=== PATIENT | male | born 1960 | race African-American/Black ===

== ENCOUNTER 2021-08-11 02:08 | Inpatient (IN) | payer MEDICAID, OTHER ==
[~2021-08-11] VITALS: Ht 182.9 cm; Wt 98.6 kg
[2021-08-11] MEDS ORDERED: FAMOTIDINE 20MG/2ML VIAL IV STA ×2 (03:17→06:39)
[2021-08-11] MEDS ORDERED: ONDANSETRON HCL 4MG/2ML INJ IV STA (03:17)
[2021-08-11] MEDS ORDERED: SODIUM CHLORIDE 0.9% 1,000 ML IV ONE (03:30)
[2021-08-11 04:24] LABS: BASOPHILS % 0.5 % (0.0-2.0); HEMOGLOBIN. 12.8 g/dL (14.0-18.0); MEAN CORPUSCULAR HEMOGLOBIN 30.9 pg (28.0-32.0); MEAN PLATELET VOLUME 8.1 fl (7.4-10.4); MONOCYTES % 10.5 % (2.0-8.0); PLATELET 197 x1000/uL (130-400); RED BLOOD CELL COUNT 4.15 mill/uL (4.7-6.1); RED CELL DISTRIBUTION WIDTH 13.8 % (11.6-14.6)
[2021-08-11 04:34] LABS: INR 1.1; PROTHROMBIN TIME 11.7 sec (9.6-11.0)
[2021-08-11 04:52] LABS: CHLORIDE 107 mEq/L (98-107)
[2021-08-11] MEDS ORDERED: IPRATROPIUM/ALBUTEROL 0.5-3(2.5)MG/3ML NEB NEB PRN (10:00)
[2021-08-11] MEDS ORDERED: ONDANSETRON HCL 4MG/2ML INJ IV PRN (10:00)
[2021-08-11] MEDS ORDERED: MAGNESIUM/ALUMINUM HYDROXIDE/SIMETHICONE 30ML UDC PO PRN (10:00)
[2021-08-11] MEDS ORDERED: ZOLPIDEM TARTRATE 5MG TABLET PO PRN (10:00)
[2021-08-11] MEDS ORDERED: ACETAMINOPHEN 325MG TABLET PO PRN (10:00)
[2021-08-11] MEDS ORDERED: DOCUSATE SODIUM 100MG CAPSULE PO PRN (10:00)
[2021-08-11] MEDS ORDERED: CLONIDINE 0.1MG TABLET PO PRN (10:00)
[2021-08-11] MEDS ORDERED: GUAIFENESIN 200MG/10ML SUGAR FREE UDC PO PRN (10:00)
[2021-08-11] MEDS: AMLODIPINE 10MG TABLET PO SCH (10:27)
[2021-08-11] MEDS: DEXT 5%/0.45% NACL 1000ML 1,000 ML IV SCH (10:28)
[2021-08-11] MEDS: HYDRALAZINE HCL 50MG TABLET PO SCH ×2 (14:24→21:10)
[2021-08-11 16:00] VITALS: BP 121/69
[2021-08-11] MEDS ORDERED: POLY510P31 PO (16:01)
[2021-08-11] MEDS ORDERED: TERB30CR8 TP (16:01)
[2021-08-11] MEDS ORDERED: GABA-532 PO (16:01)
[2021-08-11] MEDS ORDERED: [UNRECOGNIZED DRUG - OTHER] SUBCUT (16:01)
[2021-08-11] MEDS ORDERED: HYDR-4001 PO (16:01)
[2021-08-11] MEDS ORDERED: LOSA25TA26 PO (16:01)
[2021-08-11] MEDS ORDERED: INSU100I24 SUBCUT (16:01)
[2021-08-11] MEDS ORDERED: DULA0.75 SUBCUT (16:01)
[2021-08-11] MEDS ORDERED: ATOR10TA69 PO (16:01)
[2021-08-11 16:02] VITALS: BP 121/69
[2021-08-11] MEDS ORDERED: DEXTROSE 50% WATER 50ML SYRINGE IV PRN (17:45)
[2021-08-11 19:10] LABS: FOLIC ACID (FOLATE) SERUM 12.6 ng/mL (>5.38)
[2021-08-11 20:00] VITALS: BP 155/78
[2021-08-11 20:59] LABS: ETHANOL BLOOD < 10 mg/dL
[2021-08-11] MEDS: INSULIN LISPRO 100 UNITS/ML SUBCUT SCH (21:00)
[2021-08-11 21:01] LABS: TOTAL IRON BINDING CAPACITY 305 ug/dL (250-450)
[2021-08-11] MEDS: ACETAMINOPHEN 325MG TABLET PO PRN (21:10)
[2021-08-11] MEDS: METOPROLOL TARTRATE 25MG TABLET PO SCH (21:10)
[2021-08-11] MEDS: BLOOD SUGAR DIAGNOSTIC STRIP TEST SCH (21:10)
[2021-08-11 23:30] LABS: CLARITY URINE CLEAR (CLEAR); COLOR URINE YELLOW (YELLOW); KETONES URINE NEGATIVE (NEGATIVE); LEUKOCYTE ESTERASE URINE NEGATIVE (NEGATIVE); NITRITE URINE NEGATIVE (NEGATIVE); OCCULT BLOOD URINE NEGATIVE (NEGATIVE); PH URINE 5.5 (4.5-8.0); PROTEIN URINE 3+ (NEGATIVE); SPECIFIC GRAVITY URINE 1.012 (1.005-1.030)
[2021-08-11 23:42] LABS: *AMPHETAMINES SCREEN URINE NEGATIVE (NEGATIVE); *BARBITURATES SCREEN URINE NEGATIVE (NEGATIVE); *BENZODIAZEPINES SCREEN URINE NEGATIVE (NEGATIVE); *COCAINE SCREEN URINE PRESUMTIVE POSITIVE (NEGATIVE); METHADONE URINE SCREEN NEGATIVE (NEGATIVE); OPIATES URINE SCREEN NEGATIVE (NEGATIVE)
[2021-08-11 23:43] LABS: CANNABINOID URINE SCREEN NEGATIVE (NEGATIVE); PHENCYCLIDINE URINE SCREEN NEGATIVE (NEGATIVE)
[2021-08-12] VITALS: BP 141/66
[2021-08-12] MEDS: DEXT 5%/0.45% NACL 1000ML 1,000 ML IV SCH ×2 (02:26→12:23)
[2021-08-12 04:00] VITALS: BP 136/71
[2021-08-12] MEDS: ACETAMINOPHEN 325MG TABLET PO PRN (05:35)
[2021-08-12] MEDS: HYDRALAZINE HCL 50MG TABLET PO SCH ×3 (05:35→21:31)
[2021-08-12] MEDS: INSULIN LISPRO 100 UNITS/ML SUBCUT SCH ×4 (07:10→21:00)
[2021-08-12 07:12] LABS: BASOPHILS % 0.5 % (0.0-2.0); EOSINOPHILS % 2.4 % (0.0-5.0); HEMATOCRIT. 37.1 % (42.0-52.0); HEMOGLOBIN. 12.6 g/dL (14.0-18.0); LYMPHOCYTES % 14.7 % (20.0-50.0); MEAN CORPUSCULAR HEMOGLOBIN 31.2 pg (28.0-32.0); MEAN PLATELET VOLUME 8.9 fl (7.4-10.4); MONOCYTES % 10.2 % (2.0-8.0); NEUTROPHILS % 72.2 % (40.0-76.0); PLATELET 168 x1000/uL (130-400); RED BLOOD CELL COUNT 4.03 mill/uL (4.7-6.1); RED CELL DISTRIBUTION WIDTH 14.1 % (11.6-14.6)
[2021-08-12] MEDS: BLOOD SUGAR DIAGNOSTIC STRIP TEST SCH ×4 (07:39→21:31)
[2021-08-12 07:41] LABS: CHLORIDE 110 mEq/L (98-107)
[2021-08-12 07:52] LABS: PHOSPHORUS 3.8 mg/dL (2.5-4.9)
[2021-08-12 08:00] VITALS: BP 120/68
[2021-08-12 08:07] LABS: CREATINE KINASE 1152 IU/L (39-308)
[2021-08-12] MEDS ORDERED: PANTOPRAZOLE SODIUM 40 MG/VIAL IV SCH (09:00)
[2021-08-12] MEDS: AMLODIPINE 10MG TABLET PO SCH (09:03)
[2021-08-12] MEDS: METOPROLOL TARTRATE 25MG TABLET PO SCH ×2 (09:04→21:31)
[2021-08-12 12:00] VITALS: BP 111/63
[2021-08-12 16:00] VITALS: BP 122/70
[2021-08-12 20:00] VITALS: BP 121/73
[2021-08-13] VITALS: BP 133/69
[2021-08-13] MEDS: DEXT 5%/0.45% NACL 1000ML 1,000 ML IV SCH (02:15)
[2021-08-13 04:00] VITALS: BP 141/71
[2021-08-13] MEDS: HYDRALAZINE HCL 50MG TABLET PO SCH (06:14)
[2021-08-13] MEDS: INSULIN LISPRO 100 UNITS/ML SUBCUT SCH (06:14)
[2021-08-13] MEDS: BLOOD SUGAR DIAGNOSTIC STRIP TEST SCH (06:17)
[2021-08-13 08:00] VITALS: BP 111/51
== END 2021-08-13 09:20 | disposition left against medical advice (07) | DRG 253 ==
LOC: ER 02:19 → MICUSO 05:10 → UNDOADMIN 07:58 → 7EST 16:43
PROVIDERS: ADMIT Internal Medicine; ATTEND Internal Medicine
DX: K92.0 Hematemesis (principal); N17.0 Acute kidney failure with tubular necrosis; E44.1 Mild protein-calorie malnutrition; E11.22 Type 2 diabetes mellitus with diabetic chronic kidney disease; E11.51 Type 2 diabetes mellitus with diabetic peripheral angiopathy without gangrene; D64.9 Anemia, unspecified; E66.9 Obesity, unspecified; I12.9 Hypertensive chronic kidney disease with stage 1 through stage 4 chronic kidney disease, or unspecified chronic kidney disease; I16.1 Hypertensive emergency; F10.10 Alcohol abuse, uncomplicated; F14.10 Cocaine abuse, uncomplicated; I25.10 Atherosclerotic heart disease of native coronary artery without angina pectoris; K76.0 Fatty (change of) liver, not elsewhere classified; K80.20 Calculus of gallbladder without cholecystitis without obstruction; N40.0 Benign prostatic hyperplasia without lower urinary tract symptoms; Z53.21 Procedure and treatment not carried out due to patient leaving prior to being seen by health care provider; K82.8 Other specified diseases of gallbladder; N18.30 Chronic kidney disease, stage 3 unspecified; Z79.4 Long term (current) use of insulin; Z82.49 Family history of ischemic heart disease and other diseases of the circulatory system; Z83.3 Family history of diabetes mellitus; Z68.29 Body mass index [BMI] 29.0-29.9, adult; Z88.0 Allergy status to penicillin
CPT/HCPCS: 36415; 71045; 73610; 74176; 76770; 80053; 80305; 80320; 81003; 82550; 82607; 82728; 82746; 82962; 83036; 83540; 83550; 83605; 83735; 84100; 85025; 93005; 93970; 99291; C9113; J1815; J2405; J3490; J7030; G0480

== ENCOUNTER 2022-10-29 14:59 | Inpatient (IN) | payer MEDICAID, OTHER ==
[~2022-10-29] VITALS: Ht 182.9 cm; Wt 112.5 kg
[~2022-10-29 14:59] MED LIST: ATOR10TA69 PO; DULA0.75 SUBCUT; GABA-532 PO; HYDR-4001 PO; INSU100I24 SUBCUT; LOSA25TA26 PO; POLY510P31 PO; TERB30CR8 TP; [UNRECOGNIZED DRUG - OTHER] SUBCUT
[2022-10-29] MEDS ORDERED: LEVOFLOXACIN 500MG PREMIX 100 ML IV ONE (16:15)
[2022-10-29] MEDS ORDERED: VANCOMYCIN 1G PREMIX 200 ML IV SCH (16:15)
[2022-10-29 16:59] LABS: HEMATOCRIT. 25.1 % (42.0-52.0); HEMOGLOBIN. 8.4 g/dL (14.0-18.0); MEAN CORPUSCULAR HEMOGLOBIN 29.5 pg (28.0-32.0); MEAN CORPUSCULAR VOLUME 87.8 fL (80.0-94.0); MEAN PLATELET VOLUME 7.6 fl (7.4-10.4); PLATELET 137 x1000/uL (130-400); RED BLOOD CELL COUNT 2.85 mill/uL (4.7-6.1); RED CELL DISTRIBUTION WIDTH 13.8 % (11.6-14.6)
[2022-10-29 17:05] LABS: INR 1.2; PROTHROMBIN TIME 13.2 sec (9.6-11.0)
[2022-10-29 17:06] LABS: CHLORIDE 100 mEq/L (98-107)
[2022-10-29] MEDS ORDERED: LEVOFLOXACIN 500MG PREMIX 100 ML IV NR (18:15)
[2022-10-29 18:16] LABS: PLATELET ESTIMATE NORMAL
[2022-10-30] VITALS (10 sets, daily range): BP systolic 109–148; BP diastolic 62–84
[2022-10-30] MEDS ORDERED: ONDANSETRON HCL 4MG/2ML INJ IV PRN (08:45)
[2022-10-30] MEDS ORDERED: DEXTROSE 50% WATER 50ML SYRINGE IV PRN (08:45)
[2022-10-30] MEDS ORDERED: LEVOFLOXACIN 500MG PREMIX 100 ML IV SCH (09:00)
[2022-10-30] MEDS ORDERED: NIFEDIPINE XL 60MG TAB PO SCH (10:00)
[2022-10-30] MEDS: NIFEDIPINE XL 60MG TAB PO SCH (10:14)
[2022-10-30] MEDS: BLOOD SUGAR DIAGNOSTIC STRIP TEST SCH ×3 (11:30→21:29)
[2022-10-30] MEDS: INSULIN LISPRO 100 UNITS/ML SUBCUT SCH ×3 (12:00→21:00)
[2022-10-30] MEDS ORDERED: ALBUTEROL 6.7GM HFA INHALER ORI PRN (18:30)
[2022-10-30] MEDS: DEXAMETHASONE 10 MG/ML VIAL IV SCH (18:49)
[2022-10-30 19:09] LABS: BG BASE EXCESS -1.8 mmol/L (-2.0-2.0); BG CARBOXYHEMOGLOBIN 0.3 % (0.5-1.5); BG DEOXYHEMOGLOBIN 3.3 % (0.0-5.0); BG FRACTION INSPIRED OXYGEN 60; BG HCO3 ACT 22.3 mmol/L (22.0-26.0); BG METHEMOGLOBIN 0.2 % (0.0-1.5); BG OXYGEN SATURATION 96.7 % (92.0-98.5); BG OXYHEMOGLOBIN 96.2 % (94.0-97.0); BG PCO2 35.4 mmHg (35.0-45.0); BG PH 7.418 (7.350-7.450); BG PO2 95.7 mmHg (75.0-100.0); BG SAMPLE SITE RIGHT RADIAL; BG TOTAL HEMOGLOBIN 9.2 g/dL (12.0-18.0); BG VENT MODE MASK - SIMPLE
[2022-10-30] MEDS: CARVEDILOL 6.25 MG TABLET PO SCH (21:00)
[2022-10-30] MEDS: ACETAMINOPHEN 325MG TABLET PO PRN (22:58)
[2022-10-30] MEDS: EPOETIN ALFA-EPBX 4,000 UNIT/ML VIAL SUBCUT SCH (23:26)
[2022-10-31] VITALS: BP 120/69
[2022-10-31 04:00] VITALS: BP 111/69
[2022-10-31] MEDS: BLOOD SUGAR DIAGNOSTIC STRIP TEST SCH ×4 (06:00→21:03)
[2022-10-31] MEDS: INSULIN LISPRO 100 UNITS/ML SUBCUT SCH ×4 (06:20→21:01)
[2022-10-31 07:49] LABS: BASOPHILS % 0.3 % (0.0-2.0); EOSINOPHILS % 0.1 % (0.0-5.0); HEMATOCRIT. 26.8 % (42.0-52.0); HEMOGLOBIN. 8.9 g/dL (14.0-18.0); LYMPHOCYTES % 7.5 % (20.0-50.0); MEAN CORPUSCULAR HEMOGLOBIN 29.3 pg (28.0-32.0); MEAN PLATELET VOLUME 8.4 fl (7.4-10.4); MONOCYTES % 9.8 % (2.0-8.0); NEUTROPHILS % 82.3 % (40.0-76.0); PLATELET 130 x1000/uL (130-400); RED BLOOD CELL COUNT 3.04 mill/uL (4.7-6.1); RED CELL DISTRIBUTION WIDTH 14.2 % (11.6-14.6)
[2022-10-31 08:00] VITALS: BP 189/81
[2022-10-31 08:19] LABS: PHOSPHORUS 5.6 mg/dL (2.5-4.9)
[2022-10-31 09:01] LABS: BG BASE EXCESS -2.3 mmol/L (-2.0-2.0); BG CARBOXYHEMOGLOBIN 0.3 % (0.5-1.5); BG DEOXYHEMOGLOBIN 3.9 % (0.0-5.0); BG FRACTION INSPIRED OXYGEN 48; BG HCO3 ACT 22.1 mmol/L (22.0-26.0); BG METHEMOGLOBIN 0.1 % (0.0-1.5); BG OXYGEN SATURATION 96.1 % (92.0-98.5); BG OXYHEMOGLOBIN 95.7 % (94.0-97.0); BG PCO2 36.2 mmHg (35.0-45.0); BG PH 7.403 (7.350-7.450); BG PO2 86.6 mmHg (75.0-100.0); BG SAMPLE SITE RIGHT BRACHIAL; BG TOTAL HEMOGLOBIN 9.6 g/dL (12.0-18.0); BG VENT MODE NASAL CANNULA
[2022-10-31] MEDS: DEXAMETHASONE 10 MG/ML VIAL IV SCH (09:27)
[2022-10-31] MEDS: NIFEDIPINE XL 60MG TAB PO SCH (09:27)
[2022-10-31] MEDS: CARVEDILOL 6.25 MG TABLET PO SCH ×2 (09:27→21:02)
[2022-10-31 11:41] LABS: HEPATITIS B SURFACE ANTIGEN NEGATIVE
[2022-10-31 12:00] VITALS: BP 129/75
[2022-10-31] MEDS: SEVELAMER CARBONATE 800 MG TABLET PO SCH ×2 (12:38→17:35)
[2022-10-31 16:00] VITALS: BP 120/71
[2022-10-31 20:00] VITALS: BP 119/70
[2022-11-01] VITALS (14 sets, daily range): BP systolic 109–160; BP diastolic 67–99
[2022-11-01] MEDS: BLOOD SUGAR DIAGNOSTIC STRIP TEST SCH ×4 (06:25→20:38)
[2022-11-01] MEDS: INSULIN LISPRO 100 UNITS/ML SUBCUT SCH ×4 (06:42→20:45)
[2022-11-01] MEDS: SEVELAMER CARBONATE 800 MG TABLET PO SCH ×3 (06:43→18:17)
[2022-11-01 07:55] LABS: BASOPHILS % 0.2 % (0.0-2.0); HEMATOCRIT. 24.1 % (42.0-52.0); LYMPHOCYTES % 7.8 % (20.0-50.0); MEAN CORPUSCULAR VOLUME 87.4 fL (80.0-94.0); MEAN PLATELET VOLUME 8.5 fl (7.4-10.4); MONOCYTES % 14.2 % (2.0-8.0); NEUTROPHILS % 77.8 % (40.0-76.0); PLATELET 135 x1000/uL (130-400); RED BLOOD CELL COUNT 2.76 mill/uL (4.7-6.1); RED CELL DISTRIBUTION WIDTH 13.6 % (11.6-14.6)
[2022-11-01] MEDS: DEXAMETHASONE 10 MG/ML VIAL IV SCH (08:26)
[2022-11-01] MEDS: CARVEDILOL 6.25 MG TABLET PO SCH ×2 (08:27→20:47)
[2022-11-01] MEDS: NIFEDIPINE XL 60MG TAB PO SCH (08:27)
[2022-11-01 08:38] LABS: PHOSPHORUS 5.5 mg/dL (2.5-4.9)
[2022-11-01] MEDS: ACETAMINOPHEN 325MG TABLET PO PRN ×2 (09:05→20:47)
[2022-11-01] MEDS ORDERED: LEVOFLOXACIN 250MG PREMIX 50 ML IV SCH (11:00)
[2022-11-01] MEDS: EPOETIN ALFA-EPBX 4,000 UNIT/ML VIAL SUBCUT SCH (20:45)
[2022-11-02] VITALS: BP_SYST 162; BP_SYST 170; BP_DIAS 92; BP_DIAS 94
[2022-11-02 04:00] VITALS: BP 170/92
[2022-11-02] MEDS: BLOOD SUGAR DIAGNOSTIC STRIP TEST SCH ×4 (06:29→20:42)
[2022-11-02] MEDS: INSULIN LISPRO 100 UNITS/ML SUBCUT SCH ×4 (06:29→20:44)
[2022-11-02] MEDS: SEVELAMER CARBONATE 800 MG TABLET PO SCH ×3 (06:32→17:48)
[2022-11-02 08:00] VITALS: BP 167/92
[2022-11-02] MEDS: CARVEDILOL 6.25 MG TABLET PO SCH ×2 (08:53→20:43)
[2022-11-02] MEDS: NIFEDIPINE XL 60MG TAB PO SCH ×2 (08:53→18:04)
[2022-11-02] MEDS: DEXAMETHASONE 10 MG/ML VIAL IV SCH (08:53)
[2022-11-02 08:57] LABS: BASOPHILS % 0.3 % (0.0-2.0); HEMATOCRIT. 27.6 % (42.0-52.0); HEMOGLOBIN. 9.3 g/dL (14.0-18.0); LYMPHOCYTES % 8.2 % (20.0-50.0); MEAN CORPUSCULAR HEMOGLOBIN 29.4 pg (28.0-32.0); MEAN CORPUSCULAR VOLUME 87.1 fL (80.0-94.0); MEAN PLATELET VOLUME 8.4 fl (7.4-10.4); MONOCYTES % 12.4 % (2.0-8.0); NEUTROPHILS % 79.1 % (40.0-76.0); PLATELET 177 x1000/uL (130-400); RED BLOOD CELL COUNT 3.17 mill/uL (4.7-6.1)
[2022-11-02 09:30] LABS: CHLORIDE 101 mEq/L (98-107)
[2022-11-02 09:40] LABS: PHOSPHORUS 3.6 mg/dL (2.5-4.9)
[2022-11-02 09:47] LABS: BG BASE EXCESS -0.3 mmol/L (-2.0-2.0); BG CARBOXYHEMOGLOBIN 0.3 % (0.5-1.5); BG DEOXYHEMOGLOBIN 1.5 % (0.0-5.0); BG FRACTION INSPIRED OXYGEN 60; BG HCO3 ACT 23.1 mmol/L (22.0-26.0); BG METHEMOGLOBIN 0.3 % (0.0-1.5); BG OXYGEN SATURATION 98.5 % (92.0-98.5); BG OXYHEMOGLOBIN 97.9 % (94.0-97.0); BG PCO2 33.1 mmHg (35.0-45.0); BG PH 7.461 (7.350-7.450); BG PO2 156.9 mmHg (75.0-100.0); BG SAMPLE SITE LEFT BRACHIAL; BG TOTAL HEMOGLOBIN 10.5 g/dL (12.0-18.0); BG VENT MODE MASK - SIMPLE
[2022-11-02 11:30] VITALS: BP 172/89
[2022-11-02] MEDS ORDERED: CLONIDINE 0.1MG TABLET PO PRN (11:45)
[2022-11-02] MEDS ORDERED: NALOXONE HCL 0.4MG/ML VIAL IV PRN (15:45)
[2022-11-02 16:00] VITALS: BP 138/74
[2022-11-02] MEDS: HYDROCODONE/ACETAMINOPHEN 5/325MG TABLET PO PRN ×2 (16:04→20:17)
[2022-11-02 20:00] VITALS: BP 125/72
[2022-11-02] MEDS: GABAPENTIN 300MG CAPSULE PO SCH (20:13)
[2022-11-03] VITALS (7 sets, daily range): BP systolic 103–151; BP diastolic 50–82
[2022-11-03] MEDS: NIFEDIPINE XL 60MG TAB PO SCH ×2 (06:00→20:21)
[2022-11-03] MEDS: BLOOD SUGAR DIAGNOSTIC STRIP TEST SCH ×4 (06:10→20:24)
[2022-11-03] MEDS: SEVELAMER CARBONATE 800 MG TABLET PO SCH ×3 (06:17→17:56)
[2022-11-03] MEDS: INSULIN LISPRO 100 UNITS/ML SUBCUT SCH ×4 (06:19→20:24)
[2022-11-03 07:08] LABS: HEMATOCRIT. 26.3 % (42.0-52.0); HEMOGLOBIN. 8.9 g/dL (14.0-18.0); MEAN CORPUSCULAR HEMOGLOBIN 29.2 pg (28.0-32.0); MEAN CORPUSCULAR VOLUME 86.4 fL (80.0-94.0); MEAN PLATELET VOLUME 8.5 fl (7.4-10.4); PLATELET 135 x1000/uL (130-400); RED BLOOD CELL COUNT 3.04 mill/uL (4.7-6.1)
[2022-11-03 07:21] LABS: PHOSPHORUS 3.8 mg/dL (2.5-4.9)
[2022-11-03] MEDS: CARVEDILOL 6.25 MG TABLET PO SCH ×2 (09:00→20:21)
[2022-11-03] MEDS: DEXAMETHASONE 10 MG/ML VIAL IV SCH (09:32)
[2022-11-03] MEDS: GABAPENTIN 300MG CAPSULE PO SCH ×2 (09:32→17:56)
[2022-11-03] MEDS ORDERED: LEVOFLOXACIN 250MG TABLET PO SCH (11:00)
[2022-11-03 14:41] LABS: PLATELET ESTIMATE NORMAL
[2022-11-03] MEDS: EPOETIN ALFA-EPBX 4,000 UNIT/ML VIAL SUBCUT SCH (20:46)
[2022-11-04] VITALS (13 sets, daily range): BP systolic 122–158; BP diastolic 67–92
[2022-11-04] MEDS: HYDROCODONE/ACETAMINOPHEN 5/325MG TABLET PO PRN (03:54)
[2022-11-04] MEDS: INSULIN LISPRO 100 UNITS/ML SUBCUT SCH ×4 (05:40→21:21)
[2022-11-04] MEDS: BLOOD SUGAR DIAGNOSTIC STRIP TEST SCH ×4 (05:40→21:18)
[2022-11-04] MEDS: SEVELAMER CARBONATE 800 MG TABLET PO SCH ×3 (06:29→17:12)
[2022-11-04 07:50] LABS: PHOSPHORUS 3.7 mg/dL (2.5-4.9)
[2022-11-04] MEDS: CARVEDILOL 6.25 MG TABLET PO SCH ×2 (09:00→21:18)
[2022-11-04] MEDS: GABAPENTIN 300MG CAPSULE PO SCH ×2 (09:00→17:12)
[2022-11-04] MEDS: DEXAMETHASONE 10 MG/ML VIAL IV SCH (09:00)
[2022-11-04] MEDS: NIFEDIPINE XL 60MG TAB PO SCH (21:17)
[2022-11-05] VITALS (10 sets, daily range): BP systolic 114–157; BP diastolic 63–85
[2022-11-05] MEDS: BLOOD SUGAR DIAGNOSTIC STRIP TEST SCH ×4 (05:30→20:52)
[2022-11-05] MEDS: SEVELAMER CARBONATE 800 MG TABLET PO SCH ×3 (06:08→16:45)
[2022-11-05] MEDS: INSULIN LISPRO 100 UNITS/ML SUBCUT SCH ×4 (06:09→20:56)
[2022-11-05 07:35] LABS: HEMATOCRIT. 27.7 % (42.0-52.0); HEMOGLOBIN. 9.4 g/dL (14.0-18.0); MEAN CORPUSCULAR HEMOGLOBIN 29.3 pg (28.0-32.0); MEAN CORPUSCULAR VOLUME 86.1 fL (80.0-94.0); MEAN PLATELET VOLUME 8.7 fl (7.4-10.4); PLATELET 140 x1000/uL (130-400); RED BLOOD CELL COUNT 3.22 mill/uL (4.7-6.1); RED CELL DISTRIBUTION WIDTH 13.8 % (11.6-14.6)
[2022-11-05 07:44] LABS: PHOSPHORUS 4.1 mg/dL (2.5-4.9)
[2022-11-05] MEDS: GABAPENTIN 300MG CAPSULE PO SCH ×2 (08:50→16:45)
[2022-11-05] MEDS: CARVEDILOL 6.25 MG TABLET PO SCH ×2 (08:50→20:53)
[2022-11-05] MEDS: DEXAMETHASONE 10 MG/ML VIAL IV SCH (08:50)
[2022-11-05 18:38] LABS: PLATELET ESTIMATE NORMAL
[2022-11-05] MEDS: NIFEDIPINE XL 60MG TAB PO SCH (20:52)
[2022-11-06] VITALS: BP 146/77
[2022-11-06 04:00] VITALS: BP 155/80
[2022-11-06] MEDS: SEVELAMER CARBONATE 800 MG TABLET PO SCH ×3 (07:15→17:24)
[2022-11-06] MEDS: BLOOD SUGAR DIAGNOSTIC STRIP TEST SCH ×4 (07:15→20:43)
[2022-11-06] MEDS: INSULIN LISPRO 100 UNITS/ML SUBCUT SCH ×4 (07:16→20:43)
[2022-11-06 08:00] VITALS: BP 159/82
[2022-11-06] MEDS: ACETAMINOPHEN 325MG TABLET PO PRN (10:15)
[2022-11-06] MEDS: GABAPENTIN 300MG CAPSULE PO SCH ×2 (10:15→17:24)
[2022-11-06] MEDS: CARVEDILOL 6.25 MG TABLET PO SCH ×2 (10:15→20:42)
[2022-11-06] MEDS: DEXAMETHASONE 10 MG/ML VIAL IV SCH (10:16)
[2022-11-06 12:00] VITALS: BP 114/58
[2022-11-06 16:00] VITALS: BP 148/65
[2022-11-06] MEDS: NIFEDIPINE XL 60MG TAB PO SCH (20:41)
[2022-11-06] MEDS: HYDROCODONE/ACETAMINOPHEN 5/325MG TABLET PO PRN (20:42)
[2022-11-06 20:44] VITALS: BP 148/85
[2022-11-07] VITALS (10 sets, daily range): BP systolic 122–155; BP diastolic 60–80
[2022-11-07] MEDS: BLOOD SUGAR DIAGNOSTIC STRIP TEST SCH ×4 (05:56→21:02)
[2022-11-07] MEDS: SEVELAMER CARBONATE 800 MG TABLET PO SCH ×3 (06:11→17:22)
[2022-11-07] MEDS: INSULIN LISPRO 100 UNITS/ML SUBCUT SCH ×4 (06:12→21:41)
[2022-11-07 06:47] LABS: BASOPHILS % 0.2 % (0.0-2.0); EOSINOPHILS % 0.3 % (0.0-5.0); HEMATOCRIT. 27.8 % (42.0-52.0); HEMOGLOBIN. 9.3 g/dL (14.0-18.0); LYMPHOCYTES % 8.3 % (20.0-50.0); MEAN CORPUSCULAR HEMOGLOBIN 28.9 pg (28.0-32.0); MEAN CORPUSCULAR VOLUME 86.6 fL (80.0-94.0); MONOCYTES % 13.7 % (2.0-8.0); NEUTROPHILS % 77.5 % (40.0-76.0); PLATELET 127 x1000/uL (130-400); RED BLOOD CELL COUNT 3.21 mill/uL (4.7-6.1); RED CELL DISTRIBUTION WIDTH 13.8 % (11.6-14.6)
[2022-11-07 07:31] LABS: PHOSPHORUS 3.5 mg/dL (2.5-4.9)
[2022-11-07] MEDS: GABAPENTIN 300MG CAPSULE PO SCH ×2 (08:36→17:22)
[2022-11-07] MEDS: DEXAMETHASONE 10 MG/ML VIAL IV SCH (08:37)
[2022-11-07] MEDS: CARVEDILOL 6.25 MG TABLET PO SCH ×2 (08:37→21:38)
[2022-11-07] MEDS ORDERED: EPOETIN ALFA-EPBX 4,000 UNIT/ML VIAL SUBCUT SCH (21:00)
[2022-11-07] MEDS: NIFEDIPINE XL 60MG TAB PO SCH (21:39)
[2022-11-08] VITALS: BP 149/68
[2022-11-08 04:00] VITALS: BP 156/83
[2022-11-08] MEDS: BLOOD SUGAR DIAGNOSTIC STRIP TEST SCH ×2 (06:02→11:40)
[2022-11-08] MEDS: INSULIN LISPRO 100 UNITS/ML SUBCUT SCH ×2 (06:15→13:41)
[2022-11-08 08:06] VITALS: BP 147/82
[2022-11-08 08:10] LABS: BASOPHILS % 0.1 % (0.0-2.0); EOSINOPHILS % 0.6 % (0.0-5.0); HEMATOCRIT. 27.8 % (42.0-52.0); HEMOGLOBIN. 9.4 g/dL (14.0-18.0); LYMPHOCYTES % 11.9 % (20.0-50.0); MEAN CORPUSCULAR HEMOGLOBIN 28.7 pg (28.0-32.0); MEAN CORPUSCULAR VOLUME 85.1 fL (80.0-94.0); MEAN PLATELET VOLUME 8.4 fl (7.4-10.4); MONOCYTES % 12.2 % (2.0-8.0); NEUTROPHILS % 75.2 % (40.0-76.0); PLATELET 166 x1000/uL (130-400); RED BLOOD CELL COUNT 3.27 mill/uL (4.7-6.1)
[2022-11-08 08:52] LABS: PHOSPHORUS 2.9 mg/dL (2.5-4.9)
[2022-11-08] MEDS: GABAPENTIN 300MG CAPSULE PO SCH (08:58)
[2022-11-08] MEDS: CARVEDILOL 6.25 MG TABLET PO SCH (08:59)
[2022-11-08] MEDS: SEVELAMER CARBONATE 800 MG TABLET PO SCH ×2 (08:59→13:40)
[2022-11-08 12:00] VITALS: BP 131/90
[2022-11-08 15:56] VITALS: BP 131/90
[2022-11-08 16:00] VITALS: BP 146/81
[2022-11-09] MEDS ORDERED: NIFE60TA78 MT (11:23)
== END 2022-11-08 17:05 | disposition home or self-care (01) | DRG 137 ==
LOC: ER 14:59 → EDBEDREQ 15:59 → MICUSO 10-30 00:01 → EDBEDREQ 10-30 00:03 → EDBEDREQSVC 10-30 00:03 → EDBEDREQTM 10-30 00:03 → EDBEDREQDT 10-30 00:03 → 7EST 10-30 22:50
PROVIDERS: ADMIT Internal Medicine Pulmonary Disease; ATTEND Internal Medicine Pulmonary Disease
PROC: 5A1D70Z Performance of Urinary Filtration, Intermittent, Less than 6 Hours Per Day (ICD-10-PCS; principal; 2022-10-30)
PROC: 5A1D70Z Performance of Urinary Filtration, Intermittent, Less than 6 Hours Per Day (ICD-10-PCS; 2022-11-01)
PROC: 5A1D70Z Performance of Urinary Filtration, Intermittent, Less than 6 Hours Per Day (ICD-10-PCS; 2022-11-04)
PROC: 5A1D70Z Performance of Urinary Filtration, Intermittent, Less than 6 Hours Per Day (ICD-10-PCS; 2022-11-05)
PROC: 5A1D70Z Performance of Urinary Filtration, Intermittent, Less than 6 Hours Per Day (ICD-10-PCS; 2022-11-07)
DX: U07.1 COVID-19 (principal); J96.00 Acute respiratory failure, unspecified whether with hypoxia or hypercapnia; I13.2 Hypertensive heart and chronic kidney disease with heart failure and with stage 5 chronic kidney disease, or end stage renal disease; N17.9 Acute kidney failure, unspecified; E87.20 Acidosis, unspecified; E87.1 Hypo-osmolality and hyponatremia; D63.1 Anemia in chronic kidney disease; E11.22 Type 2 diabetes mellitus with diabetic chronic kidney disease; N18.6 End stage renal disease; E11.42 Type 2 diabetes mellitus with diabetic polyneuropathy; E11.51 Type 2 diabetes mellitus with diabetic peripheral angiopathy without gangrene; E78.00 Pure hypercholesterolemia, unspecified; E78.5 Hyperlipidemia, unspecified; I50.9 Heart failure, unspecified; Z88.0 Allergy status to penicillin; Z99.2 Dependence on renal dialysis; Z82.49 Family history of ischemic heart disease and other diseases of the circulatory system
CPT/HCPCS: 36415; 36600; 71045; 80048; 80053; 82375; 82805; 82962; 83605; 83735; 84100; 84145; 84484; 85025; 86705; 86706; 86709; 86803; 87340; 87426; 90935; 93005; 99285; C9803; J0885; J1100; J1815; J1956; J3370

== ENCOUNTER 2023-01-25 17:03 | Emergency (ER) | payer MEDICAID, OTHER ==
[~2023-01-25] VITALS: Ht 185.4 cm; Wt 91.0 kg
[~2023-01-25 17:03] MED LIST changes: +NIFE60TA78 MT
[2023-01-25 19:21] VITALS: BP 146/76
== END 2023-01-25 19:49 | disposition home or self-care (01) ==
LOC: ER 17:03
DX: R42 Dizziness and giddiness (principal); I10 Essential (primary) hypertension; E78.00 Pure hypercholesterolemia, unspecified; E11.9 Type 2 diabetes mellitus without complications; Z88.0 Allergy status to penicillin; Z79.899 Other long term (current) drug therapy
CPT/HCPCS: 82962; 93005; 99283